=== PATIENT | female | born 1990 | race Caucasian/White ===

== ENCOUNTER → 2017-01-08 | Outpatient (CLI) | payer OTHER ==
[~2017-01-08] MED LIST: ACET50TA PO; CIPR500T89 PO; IBUP200T2 PO; NO HOME MEDS; NYQUIL; PERC5TAB6 PO; PRENTAB66 PO; TYLE650T30 PO; ZANT150T PO; [UNRECOGNIZED DRUG - OTHER] PO
[2017-01-08 14:41] LABS: LUTEINIZING HORMONE 5.8 mIU/mL
[2017-01-08 14:49] LABS: ALBUMIN 4.2 GM/DL (3.2-5.2); ALBUMIN/GLOBULIN RATIO 1.14 (1.00-1.93); ALKALINE PHOSPHATASE 61 U/L (45-117); ALT/SGPT 7 U/L (12-78); ANION GAP 9 MEQ/L (8-16); AST/SGOT 11 U/L (15-37); BILIRUBIN,TOTAL 0.6 MG/DL (0.2-1.0); BLOOD UREA NITROGEN 9 MG/DL (7-18); CALCIUM LEVEL 9.2 MG/DL (8.5-10.1); CARBON DIOXIDE LEVEL 26 MEQ/L (21-32); CHLORIDE LEVEL 105 MEQ/L (98-107); CREATININE FOR GFR 0.58 MG/DL (0.55-1.02); GLOMERULAR FILTRATION RATE > 60.0 (>60); GLUCOSE, FASTING 83 MG/DL (70-105); POTASSIUM SERUM 4.7 MEQ/L (3.5-5.1); SODIUM LEVEL 140 MEQ/L (136-145); TOTAL PROTEIN 7.9 GM/DL (6.4-8.2)
== END ==
LOC: M WUC 12:16
PROVIDERS: ATTEND Family Medicine Addiction Medicine
DX: N97.9 Female infertility, unspecified (principal); D89.89 Other specified disorders involving the immune mechanism, not elsewhere classified; L80 Vitiligo; R53.83 Other fatigue

== ENCOUNTER → 2017-06-14 | Outpatient (CLI) | payer OTHER, SELFPAY ==
[~2017-06-14] MED LIST changes: +CIPR-249 PO; +ISOVUE-300 61% 50ML VIAL (Q9967) As Ordered ONE; +PERC5TAB12 PO; -PERC5TAB6 PO
--- NOTE | 2017-06-14 14:24 | REP ---
Hysterosalpingogram: 06/14/2017. 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 Findings: There were no prior studies procedure conducted with fluoroscopy provided to Dr. Bravo of the gynecology division. The speculum is seen and endocervical cannulation with injection of about 10 mL of water soluble Isovue 370 contrast. Normal filling of the endometrial cavity with smooth contours and normal morphology. The interstitial portion of each tube fills and the isthmic portion fills first on the left compared to the right. Both ampullary segment are then seen to fill and respectively first left and then right. Impression: 1. Normal morphology of the endometrium with the endometrial cavity intact and no evidence of synechiae. 2. Prompt bilateral fill and spill of contrast with normal isthmic, interstitial and ampullary segments of the fallopian tubes. Normal exam. 3. Fluoroscopy time: 1 minute and 3 seconds. Signed by Audie Silva MD 06/14/2017 09:21 P
== END ==
LOC: M RAD 11:43
PROVIDERS: ATTEND Obstetrics & Gynecology
DX: N97.9 Female infertility, unspecified (principal)